=== PATIENT | female | born 1950 | race Caucasian/White ===

== ENCOUNTER 2017-05-20 06:06 | Observation (INO) ==
[2017-05-20] MEDS ORDERED: Clindamycin 900 MG/50 ML 900 MG/50 ML IV.SOLN IVPB ONE (06:51)
[2017-05-20] MEDS ORDERED: Ringers Solution, Lactated 1,000 ML IVC SCH (07:00)
[2017-05-20] MEDS ORDERED: Ondansetron 4 MG/2 ML VIAL ONE (07:14)
[2017-05-20] MEDS ORDERED: *HR* FentaNYL (PF) 100 MCG/2 ML VIAL ONE (07:14)
[2017-05-20] MEDS ORDERED: Dexamethasone 4 MG/ML VIAL ONE ×2 (07:14→08:05)
[2017-05-20] MEDS ORDERED: *HR* Propofol 200 MG/20 ML VIAL IVP ONE (07:14)
[2017-05-20] MEDS ORDERED: *HR* Succinylcholine 200 MG/10 ML VIAL IVP ONE (07:14)
[2017-05-20] MEDS ORDERED: *HR* Rocuronium Bromide 50 MG/5 ML VIAL ONE (07:14)
[2017-05-20] MEDS ORDERED: *HR* Midazolam HCl 2 MG/2 ML VIAL ONE (07:14)
[2017-05-20] MEDS ORDERED: Lidocaine -MPF 2% 2 ML VIAL ONE (07:14)
[2017-05-20] MEDS ORDERED: Acetaminophen IV 1,000 MG/100 ML INFUS..BTL IVPB ONE (07:15)
[2017-05-20] MEDS ORDERED: Famotidine 20 MG/2 ML VIAL IVP ONE (07:15)
--- NOTE | 2017-05-20 07:18 | Anesthesia Evaluation PreOp ---
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: Other (Fibromyalgia) Other Medical History: GERD, Other (Obese) Anesthesia History: No Prior Anesthetic Complications : No Alcohol Use: none Medications and Allergies 3 Allergy/AdvReac Type Severity Reaction Status Date / Time acetaminophen [From Vicodin] AdvReac Nausea Verified 05/13/17 14:56 Amoxicillin AdvReac Nausea Verified 05/13/17 14:56 codeine AdvReac Nausea Verified 05/13/17 14:56 hydrocodone [From Vicodin] AdvReac Nausea Verified 05/13/17 14:56 Oxycodone [From Percocet] AdvReac Nausea Verified 05/13/17 14:56 topiramate [From Topamax] AdvReac Nausea Verified 05/13/17 14:56 - Meds/Allergy Pre-op Review Medications Reviewed: Yes Allergies Reviewed: Yes Beta Blockers on Current Med List: No Anesthesia Results - Labs Laboratory Tests 05/13/17 05/13/17 15:12 15:12 Hgb 13.1 Hct 40.4 Plt Count 252 Sodium 139 Potassium 4.2 BUN 14 Creatinine 0.75 Anesthesia Exam O2 Sat Height 1.52 m Height 1.52 m Height 1.52 m Weight 79.379 kg Weight 79.379 kg Weight 79.379 kg O2 Sat by Pulse Oximetry 95 Vital Signs Temp Pulse Resp BP Pulse Ox 98.7 F 72 18 139/80 95 05/20/17 06:34 05/20/17 06:34 05/20/17 06:34 05/20/17 06:34 05/20/17 06:34 Height: 5'0 Weight: 175 lbs NPO (# of Hours): MN Pain Scale: 0 - HEENT Pupil (Motor): Pupils equal, EOMI Mallampati: III Teeth: Edentulous Denture Type: Upper: Complete Oral Opening: Less than or equal to 3 - 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
[2017-05-20] MEDS ORDERED: Lidocaine -MPF 1% 2 ML VIAL ONE (07:23)
--- NOTE | 2017-05-20 07:44 | History & Physical Report ---
Date of Encounter: 05/20/17 Time of Encounter: 07:42 24 Hour HP Update - Instructions Instructions: If the History and Physical is less than 30 days old and was completed prior to A.M. admission and or procedure and has NOT been updated on calendar day of procedure please complete this update prior to performing procedure. - Update Patient reports changes in Medical Condition: No Changes in examination, assessment, or condition: No Changes in Medication: No Preop tests/diagnostics Reviewed: Yes Pre-Op MRSA Screen: Negative Surgery Remains Indicated: Yes Consent for Planned Operative Procedure(s) Verified: Yes - Pre-Operative Checklist Preoperative Checklist Indicated: No Prophylactic Antibiotic Ordered: Yes Home Medications Include Beta Yamilex: No Beta Yamilex Taken Today (Day of Surgery): No Beta Yamilex Taken Yesterday (Day Prior to Surgery): No Is VTE Prophylaxis Indicated?: Yes
[2017-05-20] MEDS ORDERED: *HR* Phenylephrine 10 MG/ML VIAL ONE (09:04)
[2017-05-20] MEDS ORDERED: Albuterol 2.5 MG/3 ML NEBULIZER IH PRN (09:21)
[2017-05-20] MEDS ORDERED: *HR* Promethazine 25 MG/ML VIAL IVP PRN (09:21)
[2017-05-20] MEDS ORDERED: EPHEDrine 50 MG/ML VIAL ONE (09:38)
[2017-05-20] MEDS ORDERED: *HR* HYDROmorphone 2 MG/ML SYRINGE ONE (10:09)
[2017-05-20] MEDS ORDERED: Neostigmine Methylsulfate 3 MG/3 ML SYRINGE ONE (10:10)
--- NOTE | 2017-05-20 10:46 | Orthopedic Operative Note ---
Date of procedure: 05/20/17 Pre-op diagnosis: Spondylolisthesis, lumbar stenosis Post-op diagnosis: same Operation/Findings: Posterior lumbar interbody fusion L4-L5: The patient successfully underwent general endotracheal anesthesia. The patient was given antibiotics prior to the start of the procedure. Compression boots and stockings were used for deep vein thrombosis prophylaxis. A Spears catheter was placed. Leads for neuro monitoring were placed on the upper and lower extremities. This included the cranium. The neuro monitoring personnel confirmed there were satisfactory readings prior to the start of the procedure. The patient was turned prone on the Luis Armando table. The back was prepped and draped in the usual sterile fashion. An incision was was marked and centered over the involved L4-L5 levels in the mid line. The incision was deepened through the lumbar fascia. Bovie cautery and Zapata elevators were used to reflect the paraspinal musculature at the lateral extent of the transverse processes of the involved L4 and L5 levels. Renee clamps were placed over the spinous L4 and L5 processes. An intraoperative lateral fluorograft was obtained. A conversation was held between the surgeon and radiologist and both confirmed we had the correct operative levels. We then placed pedicle screws in standard fashion with the aid of fluoroscopy and anatomic landmarks. Briefly a starter awl was used. A gearshift was subsequently used to enter the army helicopter pilot hole via a transpedicular route into the vertebral body. The army helicopter pilot hole was tapped with an undersized instrument, and subsequently four 6.5 x 40 mm pedicle screws were placed bilaterally at the indicated L4 and L5 levels. The screws were tested with the aid of the neurologic monitoring staff via pedicle screw stimulation. All reading suggested there was no significant cortical wall breech. The screws were also evaluated fluoro- graphically and appeared to be in satisfactory position. We then turned our attention to the decompression portion of the procedure. We removed the supraspinous and interspinous ligaments and subsequently the insertion of the ligamentum flavum on the undersurface of the proximal L4 lamina was dislodged with a curette. We then removed the ligamentum flavum as well as undercut the L4-L5 facets at this level to decompress the lateral recesses. We also performed a L4 laminectomy. After the decompression, which was over and above that which was required to place the interbody graft, the foramen and traversing roots at this L4-L5 level were found to be free and patent. We also took part of the medial facets in order to aid in the decompression. We then protected the neural elements including the thecal sac and traversing nerve root on the right with a dural retractor. We made an annulotomy into the L4-L5 disc space and then removed entire disc material using Pituitary instruments. We trialed various size grafts after the endplates were prepared for graft insertion. A 10 x 26 enter body graft fit well within the L4-L5 disc space. We obtained some bone from the right posterior superior iliac spine through us a separate incision and combined with this with the bone which we had saved from the laminectomy portion of the procedure. This autograft bone was first placed in the anterior portion of the L4-L5 disc space and additional bone was placed within the interbody graft spacer. We then placed the interbody graft spacer obliquely across the disc space towards the midline while protecting the neural elements with a root retractor. When the graft was found to be in satisfactory position the admissions specialist was removed. We then copiously irrigated the wound. We then decorticated the transverse processes of L4 and L5 as well as theL4-5 facet joints of the involved levels to aid in the posterolateral fusion. We placed autograft bone in the lateral gutters over these regions. We then placed rods within the screw heads of the involved levels and first locked the distal screws and then subsequently locked the proximal screws so as to improve and reduce the spondylolisthesis previously seen. We then closed the wound in layers with 1 Vicryl for the fascia, 2-0 Vicryl. Subcutaneous tissue, and Dermabond was used for skin closure. Sterile dressings were placed over the wound. The patient was turned supine on a hospital bed and extubated. All sponge instruments and needle counts were correct at the end of the procedure. The patient tolerated the procedure well without complications. Anesthesia: GETA Surgeon: Jay Acosta Jr Estimated blood loss (cc): 150 Condition: stable Disposition: PACU
[2017-05-20] MEDS: *HR* HYDROmorphone (PF) 1 MG/ML SYRINGE IVP PRN ×3 (11:00→11:20)
--- NOTE | 2017-05-20 12:02 | Anesthesia Evaluation Post Op ---
Date of Encounter: 05/20/17 Time of Encounter: 11:45 - Vital Signs Vital Signs: Vital Signs/O2 Sat/Glucose, Most Current Temp Pulse Resp BP Pulse Ox 05/20/17 11:39 97.4 F L 05/20/17 11:30 62 10 126/64 100 05/20/17 11:20 97.6 F 64 12 110/66 96 05/20/17 11:10 51 12 107/60 98 05/20/17 11:00 63 12 116/70 100 05/20/17 10:50 97.1 F L 71 12 106/58 97 05/20/17 08:20 98.7 F 72 18 139/80 95 - Lungs Lungs: Clear Ascult./Percussion - Airway Airway: Non-obstructed - Cardiovascular Regular Rate - Mental Status Mental Status: Alert & Oriented, Answers Appropriately - Pain Pain Scale: 1 - Nausea Vomiting Nausea Vomiting: Not Present - Hydration Hydration: Ice chips - Discharge PostOp Status: Transfer Patient to floor
[2017-05-20] MEDS ORDERED: Naloxone 0.4 MG/ML INJ IVP PRN (12:26)
[2017-05-20] MEDS ORDERED: traMADol 50 MG TABLET PO PRN (12:26)
[2017-05-20] MEDS ORDERED: Famotidine 20 MG TABLET PO PRN (12:26)
[2017-05-20] MEDS: Ondansetron 4 MG/2 ML VIAL IVP PRN ×2 (14:42→21:13)
[2017-05-20] MEDS: Clindamycin 600 MG/50 ML 600 MG/50 ML IV.SOLN IVPB SCH ×2 (14:42→23:03)
[2017-05-20] MEDS: *HR* OxyCODONE Immed Rel 5 MG TABLET PO PRN (14:42)
[2017-05-20] MEDS ORDERED: Scopolamine Patch 1.5 MG PATCH.TD72 TD ONE (15:50)
[2017-05-20] MEDS: *HR* Morphine 2 MG/ML SYRINGE IVP PRN (20:01)
[2017-05-20] MEDS: Ringers Solution, Lactated 1,000 ML IVC SCH (21:12)
[2017-05-21] MEDS: *HR* Morphine 2 MG/ML SYRINGE IVP PRN ×2 (00:13→04:07)
[2017-05-21 08:02] LABS: BUN/Creatinine Ratio 15 (6-26); Blood Urea Nitrogen 10 mg/dL (7-20); Calcium 9.1 mg/dL (8.6-10.8); Carbon Dioxide 23 mEq/L (19-29); Chloride 106 mEq/L (98-109); Glucose 106 mg/dL (70-99); Osmolality,Calculated 287 (280-300); Potassium 4.9 mEq/L (3.5-4.5); Sodium 139 mEq/L (136-145); eGFR For African Americans > 60 (> 60); eGFR For Non-African Americans > 60 (> 60)
[2017-05-21] MEDS: Cholecalciferol (D-3) 1,000 UNIT TABLET PO SCH (09:08)
[2017-05-21] MEDS: Magnesium Oxide 400 MG TABLET PO SCH (09:08)
[2017-05-21] MEDS: *HR* OxyCODONE Immed Rel 5 MG TABLET PO PRN ×4 (09:09→23:35)
--- NOTE | 2017-05-21 11:50 | Spine Progress Note ---
Date of Encounter: 05/21/17 Time of Encounter: 11:49 Subjective Principal diagnosis: Spondylolisthesis, lumbar stenosis, lumbar radiculopathy Interval history: The patient of back pain reasonably controlled on IV narcotics.. Afebrile vital signs are stable. Dressing is clean dry and intact. Neurovascularly intact with regard to bilateral lower extremities. . Assessment :stable. Plan mobilize ,continue analgesics, discharge planning. Objective Vital signs: Vital Signs Temp Pulse Resp BP Pulse Ox 05/21/17 07:35 99.0 F 66 16 111/68 100 05/21/17 04:03 98.8 F 72 17 105/66 98 05/20/17 23:40 98.1 F 81 19 103/63 99 05/20/17 21:21 98.0 F 80 16 117/72 100 05/20/17 15:25 97.4 F L 65 16 109/70 99 05/20/17 14:09 97.2 F L 60 18 113/69 98 05/20/17 13:55 97.2 F L 60 18 113/69 98 05/20/17 13:03 70 12 116/60 100 05/20/17 12:30 97.5 F L 65 16 131/76 99 05/20/17 12:01 96.4 F L 54 12 109/70 99 Intake and Output 05/20/17 05/21/17 05/21/17 23:59 07:59 15:59 Intake Total 25 / 25 100 / 100 480 / 480 Output Total 900 / 900 1500 / 1500 Balance -875 / -875 -1400 / -1400 480 / 480 Intake: IV Fluids 50 / 50 Cleocin Premix 600 MG/50 50 / 50 ML 600 mg In 50 ml @ 50 mls/hr IVPB Q8HR [facility] Rx#: [id number] Oral 25 / 25 50 / 50 480 / 480 Output: Catheter 900 / 900 1500 / 1500 Other: Meal Breakfast Percent of Meal Consumed 20% - Labs CBC & BMP: 05/21/17 07:10 Labs: Abnormal lab results Potassium 4.9 mEq/L (3.5-4.5) H 05/21/17 07:10 Glucose 106 mg/dL (70-99) H 05/21/17 07:10 Consult Discharge Plan - Plan Referrals: Gregor España MD [Primary Care Provider] -
[2017-05-21] MEDS: Ondansetron ODT 4 MG TAB.RAPDIS SL PRN (14:21)
[2017-05-21] MEDS: Ringers Solution, Lactated 1,000 ML IVC SCH ×2 (18:45)
[2017-05-22] MEDS: Ondansetron ODT 4 MG TAB.RAPDIS SL PRN ×2 (03:09→09:38)
[2017-05-22] MEDS: Ringers Solution, Lactated 1,000 ML IVC SCH ×2 (03:11→21:00)
[2017-05-22] MEDS: *HR* OxyCODONE Immed Rel 5 MG TABLET PO PRN ×3 (09:37→20:59)
[2017-05-22] MEDS: Magnesium Oxide 400 MG TABLET PO SCH (09:38)
[2017-05-22] MEDS: Cholecalciferol (D-3) 1,000 UNIT TABLET PO SCH (09:38)
[2017-05-22] MEDS: *HR* Morphine 2 MG/ML SYRINGE IVP PRN (11:59)
[2017-05-22] MEDS ORDERED: Bisacodyl 10 MG RECTAL SUPPOSITORY RC PRN (22:39)
[2017-05-23] MEDS ORDERED: Acetaminophen 325 MG TABLET PO PRN (02:26)
[2017-05-23 02:42] LABS: Alanine Aminotransferase 21 Units/L (0-55); Albumin 2.7 g/dL (3.5-5.0); Albumin/Globulin Ratio 0.8 (1.1-2.2); Alkaline Phosphatase 75 Units/L (38-126); Aspartate Amino Transferase 30 Units/L (5-34); BUN/Creatinine Ratio 14 (6-26); Bilirubin,Total 1.1 mg/dL (0.2-1.2); Blood Urea Nitrogen 9 mg/dL (7-20); Calcium 8.5 mg/dL (8.6-10.8); Carbon Dioxide 25 mEq/L (19-29); Chloride 100 mEq/L (98-109); Globulin 3.3 g/dL (2.4-3.5); Glucose 120 mg/dL (70-99); Osmolality,Calculated 278 (280-300); Potassium 4.2 mEq/L (3.5-4.5); Sodium 134 mEq/L (136-145); eGFR For African Americans > 60 (> 60); eGFR For Non-African Americans > 60 (> 60)
[2017-05-23 06:02] LABS: Basophils # 0.1 K/mcL (0.0-0.2); Basophils % 0.6 %; Eosinophils # 0.4 K/mcL (0.0-0.6); Eosinophils % 2.5 %; Hemoglobin 10.2 g/dL (11.5-15.4); Immature Granulocytes % 0.5 % (0-4); Immature Platelets 4.1 % (1.1-6.1); Lymphocytes # 2.1 K/mcL (0.6-4.6); Lymphocytes % 14.9 %; Mean Corpuscular HGB Conc 32.9 g/dL (31.6-35.5); Mean Corpuscular Hemoglobin 31.8 pg (28.0-33.3); Mean Corpuscular Volume 96.6 fL (83.0-100.0); Mean Platelet Volume 10.4 fL (9.4-12.4); Monocytes # 1.9 K/mcL (0.0-1.3); Monocytes % 13.7 %; Neutrophils # 9.3 K/mcL (1.6-8.9); Platelet Count 213 K/mcL (140-400); Red Blood Count 3.21 M/mcL (3.82-4.97); Red Cell Distribution Width 12.5 % (11.5-14.5); Segmented Neutrophils % 67.8 %
[2017-05-23] MEDS: Ondansetron 4 MG/2 ML VIAL IVP PRN (06:03)
[2017-05-23] MEDS: *HR* OxyCODONE Immed Rel 5 MG TABLET PO PRN ×2 (06:08→14:52)
--- NOTE | 2017-05-23 06:51 | Event Note ---
Date of Encounter: 05/23/17 Time of Encounter: 02:15 Assessed at bedside due to fever. No new pain. Minimal cough, no sputum. No abdominal pain. No new rash. No dysuria. Appears acutely ill but non-toxic. Low normal blood pressure. Lower back wound with minimal srosanguinous dried discharge on bandage, no erythema or warmth. Decreased breath sounds at bases. Soft, NT, ND, no guarding or rebound. Trace LE swelling, no erythema. - Post-op fever, no clear focal source - blood cultures - urine cultures - CXR - CBC, CMP - Doppler, r/o DVT - Hold antibiotics for now, try to find source - If persistent fever, worsens clinically and no source found, consider broad spectrum antibiotics
[2017-05-23] MEDS: Cholecalciferol (D-3) 1,000 UNIT TABLET PO SCH (09:47)
[2017-05-23] MEDS: Magnesium Oxide 400 MG TABLET PO SCH (09:47)
--- NOTE | 2017-05-23 14:13 | Spine Progress Note ---
Date of Encounter: 05/22/17 Time of Encounter: 14:00 Subjective Principal diagnosis: Spondylolisthesis, lumbar stenosis, lumbar radiculopathy Interval history: The patient of back pain reasonably controlled on IV narcotics.. Afebrile vital signs are stable. Incision is clean dry and intact. Neurovascularly intact with regard to bilateral lower extremities. . Assessment :stable. Plan mobilize ,continue analgesics, discharge planning. Objective Vital signs: Vital Signs Temp Pulse Resp BP Pulse Ox 05/23/17 11:50 99.2 F 79 15 112/73 92 05/23/17 08:23 99.4 F 83 16 106/70 93 05/23/17 04:30 100.5 F H 92 18 94/57 94 05/23/17 01:04 101.8 F H 86 18 102/67 95 05/22/17 20:37 100.2 F H 94 17 105/64 95 05/22/17 15:52 100.9 F H 91 14 116/71 97 Intake and Output 05/22/17 05/23/17 05/23/17 23:59 07:59 15:59 Intake Total 120 / 120 Output Total 0 / 0 Balance 0 / 0 120 / 120 Intake: Oral 120 / 120 Output: Urine 0 / 0 Other: Meal Clear Liquid Diet Breakfast Percent of Meal Consumed 5% 10% # Voids 1 1 Weight 80.63 kg Patient Weight 05/23/17 23:59 Weight 80.63 kg - Labs CBC & BMP: 05/23/17 05:54 05/23/17 02:15 Labs: Abnormal lab results WBC 13.8 K/mcL (4.3-11.1) H 05/23/17 05:54 RBC 3.21 M/mcL (3.82-4.97) L 05/23/17 05:54 Hgb 10.2 g/dL (11.5-15.4) L 05/23/17 05:54 Hct 31.0 % (35.3-44.9) L 05/23/17 05:54 Neutrophils # 9.3 K/mcL (1.6-8.9) H 05/23/17 05:54 Monocytes # 1.9 K/mcL (0.0-1.3) H 05/23/17 05:54 Sodium 134 mEq/L (136-145) L 05/23/17 02:15 Glucose 120 mg/dL (70-99) H 05/23/17 02:15 Calculated Osmolality 278 (280-300) L 05/23/17 02:15 Calcium 8.5 mg/dL (8.6-10.8) L 05/23/17 02:15 Albumin 2.7 g/dL (3.5-5.0) L 05/23/17 02:15 Albumin/Globulin Ratio 0.8 (1.1-2.2) L 05/23/17 02:15 Consult Discharge Plan - Plan Referrals: Gregor España MD [Primary Care Provider] -
[2017-05-23 15:37] VITALS: BP 123/74
--- NOTE | 2017-05-23 17:51 | Discharge Summary ---
Date of Encounter: 05/23/17 Time of Encounter: 17:49 - Discharge Diagnosis (1) Spondylolisthesis Priority: Primary Status: Chronic Qualifiers: Spinal region: lumbar Qualified Code(s): M43.16 - Spondylolisthesis, lumbar region (2) Lumbar stenosis Priority: Secondary Status: Chronic - Discharge Medications Prescriptions: Oxycodone HCl 5 mg PO BID PRN #30 PRN Reason: Moderate Pain Home Medications: Calcium Carbonate/Vitamin D3 [Calcium 500 + Vit D Caplet] 1 tab PO BID 05/20/17 [History] Famotidine [Pepcid] 40 mg PO DAILY PRN 05/20/17 [History] Gabapentin [Neurontin] 300 mg PO TID 05/20/17 [History] Magnesium Oxide [Magnesium] 500 mg PO DAILY 05/20/17 [History] Meloxicam 15 mg PO DAILY 05/20/17 [History] Prochlorperazine Maleate [Compazine] 10 mg PO Q8HR PRN 05/20/17 [History] Oxycodone HCl 5 mg PO BID PRN #30 05/23/17 [Rx] Allergies/Adverse Reactions: 3 Allergy/AdvReac Type Severity Reaction Status Date / Time Amoxicillin AdvReac Nausea Verified 05/20/17 07:58 codeine AdvReac Nausea Verified 05/20/17 07:58 hydrocodone AdvReac Nausea Verified 05/20/17 07:58 topiramate [From Topamax] AdvReac Nausea Verified 05/20/17 07:58 Labs on day of discharge: Labs from last 24 hours 05/23/17 05/23/17 05/23/17 05:54 02:15 02:15 WBC 13.8 H RBC 3.21 L Hgb 10.2 L Hct 31.0 L MCV 96.6 MCH 31.8 MCHC 32.9 RDW 12.5 Plt Count 213 MPV 10.4 Immature Gran % 0.5 Seg Neutrophils % 67.8 Lymphocytes % 14.9 Monocytes % 13.7 Eosinophils % 2.5 Basophils % 0.6 Neutrophils # 9.3 H Lymphocytes # 2.1 Monocytes # 1.9 H Eosinophils # 0.4 Basophils # 0.1 Immature Plt Fraction 4.1 Sodium 134 L Potassium 4.2 Chloride 100 Carbon Dioxide 25 BUN 9 Creatinine 0.64 Est GFR ( Amer) > 60 Est GFR (Non-Af Amer) > 60 BUN/Creatinine Ratio 14 Glucose 120 H Calculated Osmolality 278 L Calcium 8.5 L Total Bilirubin 1.1 AST 30 ALT 21 Alkaline Phosphatase 75 Serum Total Protein 6.0 Albumin 2.7 L Globulin 3.3 Albumin/Globulin Ratio 0.8 L Specimen Rejected Clotted - Impressions ITS Impressions Lumbar Spine X-Ray 05/20/17 00:00 IMPRESSION: Status post L4-5 fusion with improved alignment of the lumbar spine D/ / Germain Herrera MD / Germain Herrera MD Interpreting Provider: Germain Herrera MD Chest X-Ray 05/23/17 02:27 IMPRESSION: No evidence of acute cardiopulmonary disease. D/ / Dashawn Dowell MD / Dashawn Dowell MD Interpreting Provider: Dashawn Dowell MD Lumbar Spine X-Ray 05/23/17 08:15 IMPRESSION: 1. Stable alignment status post L4/L5 posterior fusion. No evidence of hardware complication. 2. Severe L5/S1 degenerative disc disease. D/ / Shakeel Sandhu MD / Shakeel Sandhu MD Interpreting Provider: Shakeel Sandhu MD Date of admission: 05/20/17 11:46 Primary care physician: Gregor España MD Consults: 05/20/17 12:26 Consult to Occupational Therapy [CONS] Routine Comment: Evaluate, develop and implement POC Reason for Consult: Postoperative Consult to Physical Therapy [CONS] Routine Comment: Evaluate, develop and implement POC Reason for Consult: Postoperative Consult to Spine Navigator [CONS] [CONS] Routine 05/20/17 12:55 Consult to Firing Pin Gauger [CONS] Routine Reason for SW Consult: [facility] - Patient Status Disposition: Transfer SNF Condition: Good Functional capacity at discharge: uses cane/walker Overall status at discharge: patient is progressing back to baseline - Discharge Instructions Follow Up With: Gregor España MD [Primary Care Provider] - - Diet and Activity Activity: as per physical therapy Diet: advance to your usual diet - Hospital Course Hospital course: Ms. Clemons is a 66 year old female The patient had an uneventful postoperative course. Progressed from intravenous analgesic needs to oral analgesic needs only. Remained neurovascularly intact and mobilized only fairly. All intraoperative and/or postoperative radiographic studies were satisfactory. Patient is discharged with plan for rehabilitation and follow-up in 2 weeks post discharge on analgesic medication and patient's home medications. - Time Spent with Patient Total time spent providing and/or coordinating discharge services: - VTE Documentation of Mechanical Device: Venous foot pump, device
== END 2017-05-23 19:30 | DRG 460 ==
LOC: SAMDAY 06:06 → 3NENU 11:46 → INTOOBSV 11:46
PROVIDERS: ADMIT Orthopaedic Surgery Orthopaedic Surgery of the Spine; ATTEND Orthopaedic Surgery Orthopaedic Surgery of the Spine

== ENCOUNTER 2017-09-06 06:49 | Observation (INO) ==
[2017-09-06] MEDS ORDERED: 0.9 % Sodium Chloride 1,000 ML ONE (07:06)
[2017-09-06 07:13] LABS: Basophils # 0.1 K/mcL (0.0-0.2); Basophils % 0.6 %; Eosinophils # 0.5 K/mcL (0.0-0.6); Eosinophils % 3.1 %; Hematocrit 45.4 % (35.3-44.9); Hemoglobin 15.2 g/dL (11.5-15.4); Immature Granulocytes % 0.4 % (0-4); Lymphocytes # 0.9 K/mcL (0.6-4.6); Lymphocytes % 6.1 %; Mean Corpuscular HGB Conc 33.5 g/dL (31.6-35.5); Mean Corpuscular Hemoglobin 30.2 pg (28.0-33.3); Mean Corpuscular Volume 90.3 fL (83.0-100.0); Mean Platelet Volume 9.9 fL (9.4-12.4); Monocytes # 1.2 K/mcL (0.0-1.3); Neutrophils # 11.8 K/mcL (1.6-8.9); Platelet Count 355 K/mcL (140-400); Red Blood Count 5.03 M/mcL (3.82-4.97); Red Cell Distribution Width 13.2 % (11.5-14.5); Segmented Neutrophils % 81.8 %
[2017-09-06 07:27] LABS: Alanine Aminotransferase 21 Units/L (0-55); Albumin 3.5 g/dL (3.5-5.0); Albumin/Globulin Ratio 0.9 (1.1-2.2); Alkaline Phosphatase 140 Units/L (38-126); Amylase 42 Units/L (25-125); Aspartate Amino Transferase 22 Units/L (5-34); BUN/Creatinine Ratio 19 (6-26); Bilirubin,Direct 0.3 mg/dL (0.0-0.5); Bilirubin,Indirect 0.3 mg/dL (0.0-1.2); Bilirubin,Total 0.6 mg/dL (0.2-1.2); Blood Urea Nitrogen 14 mg/dL (7-20); Calcium 9.2 mg/dL (8.6-10.8); Carbon Dioxide 25 mEq/L (19-29); Chloride 102 mEq/L (98-109); Glucose 142 mg/dL (70-99); Osmolality,Calculated 287 (280-300); Potassium 3.9 mEq/L (3.5-4.5); Sodium 137 mEq/L (136-145); Total Protein 7.5 g/dL (6.0-8.3); eGFR For African Americans > 60 (> 60); eGFR For Non-African Americans > 60 (> 60)
[2017-09-06 07:30] LABS: Lipase < 10 Units/L (8-78)
[2017-09-06] MEDS ORDERED: Ondansetron 4 MG/2 ML VIAL IVP ONE (07:33)
[2017-09-06] MEDS ORDERED: Famotidine 20 MG/2 ML VIAL IVP ONE (07:43)
[2017-09-06 08:01] LABS: Bilirubin,Urine Negative (Negative); Blood,Urine Negative (Negative); Clarity,Urine Clear (Clear); Color,Urine Yellow (Yellow); Glucose,Urine (UA) Normal (Normal); Ketones,Urine Negative (Negative); Leukocyte Esterase,Urine Small (Negative); Nitrite,Urine Negative (Negative); PH,Urine 7.5 pH Units (5.0-8.0); Protein,Urine 30 mg/dL (Neg-Trace); Specific Gravity,Urine 1.022 (1.010-1.025); Urobilinogen,Urine Normal (Normal)
[2017-09-06 08:04] LABS: Bacteria,Urine None Seen per hpf (None-Few); Hyaline Casts,Urine None Seen per lpf (None-Few); RBC,Urine 0-3 per hpf (0-3); Squamous Epithelial Cell,Urine Many per lpf (None-Few)
--- NOTE | 2017-09-06 08:11 | Emergency Department Note ---
Disposition Clinical Impression: Generalized weakness Pneumonia Qualifiers: Pneumonia type: due to unspecified organism Laterality: left Lung location: unspecified part of lung Qualified Code(s): J18.9 - Pneumonia, unspecified organism Nausea & vomiting Qualifiers: Vomiting type: bilious vomiting Qualified Code(s): R11.14 - Bilious vomiting Disposition: Admitted As Inpatient Condition: Undetermined Time of Disposition: 09:27 Abdominal Pain HPI - General Chief Complaint: ED Abdominal Pain Stated Complaint: n/v/d Time Seen by Provider: 09/06/17 07:12 Source: patient Mode of arrival: ambulatory Limitations: no limitations Nursing Notes Reviewed: Yes Vital Signs Reviewed: Yes - History of Present Illness HPI Narrative: 67-year-old female arrives [facility] emergency department complaining of multiple complaints but states that brought her into the emergency department is over the past 3 days she has been experiencing a large amount of diarrhea, vomiting, nausea. The patient also is of some left-sided abdominal pain. The patient states this is an ongoing course the past 3 days it is new. The patient does state that over the past month she has felt ill and had numerous visits with different physicians including urgent care as well as PCP. The patient was noted to have been recently treated with azithromycin for concern for upper respiratory infection. The patient recently had PFTs for concern for COPD which were negative. Patient denies any other complaints at this time. Upon arrival to the emergency department she was noted to be tachycardic. An IV was placed and fluids were banister. The patient states that she has been vomiting bilious type vomit as well as copious amounts of diarrhea. Pt Subjective Complaint: abdominal pain Onset (ago): day(s) (3) Consistency: intermittent Pain Severity: mild Pain Scale: 1 Quality: cramping Radiation: none Migration to: no migration Improves with: nothing Worsens with: nothing Associated symptoms: Reports: nausea, vomiting, diarrhea. Denies: fever, chills , constipation, dysuria, hematemesis, hematochezia, melena, hematuria, anorexia , syncope Treatments prior to arrival: none - Related Data Home Medications Medication Instructions Recorded Confirmed Calcium Carbonate/Vitamin D3 1 tab PO BID 05/20/17 09/06/17 [Calcium 500 + Vit D Caplet] Famotidine [Pepcid] 40 mg PO DAILY PRN 05/20/17 09/06/17 Gabapentin [Neurontin] 300 mg PO TID 05/20/17 09/06/17 Magnesium Oxide [Magnesium] 500 mg PO DAILY 05/20/17 09/06/17 Meloxicam 15 mg PO DAILY 05/20/17 09/06/17 Oxycodone HCl 10 mg PO BID PRN 09/06/17 09/06/17 Previous Rx's Medication Instructions Recorded Albuterol Sulfate [Albuterol 2 puff IH QID #1 inhaler 08/30/17 Inhaler] Allergies Allergy/AdvReac Type Severity Reaction Status Date / Time Amoxicillin AdvReac Nausea Verified 09/06/17 06:51 codeine AdvReac Nausea Verified 09/06/17 06:51 hydrocodone AdvReac Nausea Verified 09/06/17 06:51 topiramate [From Topamax] AdvReac Nausea Verified 09/06/17 06:51 All systems ED: reviewed and negative except as stated. Constitutional: Reports: chills, weakness. Denies: fever ENT ED: Denies: congestion Cardiovascular: Denies: chest pain Respiratory: Reports: cough, wheezes. Denies: dyspnea, hemoptysis, sputum production Gastrointestinal: Reports: abdominal pain, nausea, vomiting, diarrhea. Denies: constipation, hematemesis, melena, hematochezia Genitourinary: Denies: urgency, dysuria Musculoskeletal: Reports: myalgia. Denies: back pain, neck pain, arthralgia Integumentary: Denies: rash Neurological: Reports: weakness. 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 Psychiatric history: Reports: no psych history - Social History Smoking status: Never smoker Alcohol use: Reports: none Drug use: Reports: none Physical Exam - General Limitations: no limitations General appearance: alert, in no apparent distress - Head Head exam: atraumatic, normocephalic, normal inspection - Eye Eye exam: Present: normal appearance, PERRL, EOMI - ENT ENT exam: normal exam, normal oropharynx, mucous membranes moist - Neck Neck exam: Present: normal inspection, full ROM, trachea midline - Chest Chest inspection: Present: normal inspection, symmetric chest wall rise - Respiratory Respiratory exam: Present: other (Coarse breath sounds. ) - Cardiovascular Cardiovascular exam: Present: normal rhythm, tachycardia, normal heart sounds - Abdominal Exam Abdominal exam: Present: soft, tenderness (LEFT abdomen). Absent: distention, guarding, rebound, rigidity, heel tap sign, Medley's sign, Rovsing's sign, tenderness at McBurney's Point - Extremities Exam Extremities exam: Present: normal inspection, full ROM. Absent: tenderness, pedal edema - Neurological Exam Neurological exam: Present: alert, oriented X3 - Skin Skin exam: Present: warm, dry, intact, normal color Course Vital Signs Temperature 98.1 F 09/06/17 06:52 Pulse Rate 119 09/06/17 06:52 Respiratory Rate 18 09/06/17 06:52 Blood Pressure 116/81 09/06/17 06:52 O2 Sat by Pulse Oximetry 93 09/06/17 06:52 Temperature 98.1 F 09/06/17 11:08 Pulse Rate 83 09/06/17 11:08 Respiratory Rate 16 09/06/17 11:08 Blood Pressure 143/87 09/06/17 11:08 O2 Sat by Pulse Oximetry 97 09/06/17 11:08 Oxygen Delivery Oxygen Delivery Room Air Abdominal Pain - MDM Narrative Medical decision making narrative: Patient's chest x-ray demonstrates a left lingular pneumonia. We will obtain a lactate and blood culture. The patient was tachycardic upon arrival to the emergency department. This has subsequently resolved. The patient states that this has continued and she is concerned about going home. We administered 1 g of Rocephin for community-acquired pneumonia. We will admit the patient to the hospitalist at this time. Accepted by Dr. Walton. - Lab Data Lab results reviewed: Yes I reviewed the patient's lab results. Result diagrams: 09/06/17 07:06 09/06/17 07:06 Lab Results 09/06/17 09/06/17 09/06/17 Range/Units 07:06 07:06 07:06 WBC 14.4 H (4.3-11.1) K/mcL RBC 5.03 H (3.82-4.97) M/mcL Hgb 15.2 (11.5-15.4) g/dL Hct 45.4 H (35.3-44.9) % MCV 90.3 (83.0-100.0) fL MCH 30.2 (28.0-33.3) pg MCHC 33.5 (31.6-35.5) g/dL RDW 13.2 (11.5-14.5) % Plt Count 355 (140-400) K/mcL MPV 9.9 (9.4-12.4) fL Immature Gran % 0.4 (0-4) % Seg Neutrophils % 81.8 % Lymphocytes % 6.1 % Monocytes % 8.0 % Eosinophils % 3.1 % Basophils % 0.6 % Neutrophils # 11.8 H (1.6-8.9) K/mcL Lymphocytes # 0.9 (0.6-4.6) K/mcL Monocytes # 1.2 (0.0-1.3) K/mcL Eosinophils # 0.5 (0.0-0.6) K/mcL Basophils # 0.1 (0.0-0.2) K/mcL Sodium 137 (136-145) mEq/L Potassium 3.9 (3.5-4.5) mEq/L Chloride 102 (98-109) mEq/L Carbon Dioxide 25 (19-29) mEq/L BUN 14 (7-20) mg/dL Creatinine 0.72 (0.57-1.11) mg/dL Est GFR ( Amer) > 60 (> 60) Est GFR (Non-Af Amer) > 60 (> 60) BUN/Creatinine Ratio 19 (6-26) Glucose 142 H (70-99) mg/dL Calculated Osmolality 287 (280-300) Lactic Acid (0.5-2.2) mmol/L Calcium 9.2 (8.6-10.8) mg/dL Magnesium 1.9 (1.6-2.6) mg/dL Total Bilirubin 0.6 (0.2-1.2) mg/dL Direct Bilirubin 0.3 (0.0-0.5) mg/dL Indirect Bilirubin 0.3 (0.0-1.2) mg/dL AST 22 (5-34) Units/L ALT 21 (0-55) Units/L Alkaline Phosphatase 140 H (38-126) Units/L Troponin I 0.02 (0-0.03) ng/mL Serum Total Protein 7.5 (6.0-8.3) g/dL Albumin 3.5 (3.5-5.0) g/dL Globulin 4.0 H (2.4-3.5) g/dL Albumin/Globulin Ratio 0.9 L (1.1-2.2) Amylase 42 (25-125) Units/L Lipase < 10 (8-78) Units/L Urine Color (Yellow) Urine Clarity (Clear) Urine pH (5.0-8.0) pH Units Ur Specific [place] (1.010-1.025) Urine Protein (Neg-Trace) mg/dL Urine Glucose (UA) (Normal) mg/dL Urine Ketones (Negative) mg/dL Urine Blood (Negative) Urine Nitrite (Negative) Urine Bilirubin (Negative) Urine Urobilinogen (Normal) mg/dL Ur Leukocyte Esterase (Negative) Urine Microscopic RBC (0-3) per hpf Urine Microscopic WBC (0-3) per hpf Ur Squamous Epith Cells (None-Few) per lpf Urine Bacteria (None-Few) per hpf Hyaline Casts (None-Few) per lpf Ur Culture Indicated? (NO) 09/06/17 09/06/17 Range/Units 07:33 09:49 WBC (4.3-11.1) K/mcL RBC (3.82-4.97) M/mcL Hgb (11.5-15.4) g/dL Hct (35.3-44.9) % MCV (83.0-100.0) fL MCH (28.0-33.3) pg MCHC (31.6-35.5) g/dL RDW (11.5-14.5) % Plt Count (140-400) K/mcL MPV (9.4-12.4) fL Immature Gran % (0-4) % Seg Neutrophils % % Lymphocytes % % Monocytes % % Eosinophils % % Basophils % % Neutrophils # (1.6-8.9) K/mcL Lymphocytes # (0.6-4.6) K/mcL Monocytes # (0.0-1.3) K/mcL Eosinophils # (0.0-0.6) K/mcL Basophils # (0.0-0.2) K/mcL Sodium (136-145) mEq/L Potassium (3.5-4.5) mEq/L Chloride (98-109) mEq/L Carbon Dioxide (19-29) mEq/L BUN (7-20) mg/dL Creatinine (0.57-1.11) mg/dL Est GFR ( Amer) (> 60) Est GFR (Non-Af Amer) (> 60) BUN/Creatinine Ratio (6-26) Glucose (70-99) mg/dL Calculated Osmolality (280-300) Lactic Acid 2.1 (0.5-2.2) mmol/L Calcium (8.6-10.8) mg/dL Magnesium (1.6-2.6) mg/dL Total Bilirubin (0.2-1.2) mg/dL Direct Bilirubin (0.0-0.5) mg/dL Indirect Bilirubin (0.0-1.2) mg/dL AST (5-34) Units/L ALT (0-55) Units/L Alkaline Phosphatase (38-126) Units/L Troponin I (0-0.03) ng/mL Serum Total Protein (6.0-8.3) g/dL Albumin (3.5-5.0) g/dL Globulin (2.4-3.5) g/dL Albumin/Globulin Ratio (1.1-2.2) Amylase (25-125) Units/L Lipase (8-78) Units/L Urine Color Yellow (Yellow) Urine Clarity Clear (Clear) Urine pH 7.5 (5.0-8.0) pH Units Ur Specific [place] 1.022 (1.010-1.025) Urine Protein 30 H (Neg-Trace) mg/dL Urine Glucose (UA) Normal (Normal) mg/dL Urine Ketones Negative (Negative) mg/dL Urine Blood Negative (Negative) Urine Nitrite Negative (Negative) Urine Bilirubin Negative (Negative) Urine Urobilinogen Normal (Normal) mg/dL Ur Leukocyte Esterase Small H (Negative) Urine Microscopic RBC 0-3 (0-3) per hpf Urine Microscopic WBC 3-5 H (0-3) per hpf Ur Squamous Epith Cells Many H (None-Few) per lpf Urine Bacteria None Seen (None-Few) per hpf Hyaline Casts None Seen (None-Few) per lpf Ur Culture Indicated? NO (NO) - Radiology Data Radiology results reviewed: Yes I reviewed the patient's radiology results. - EKG Data EKG attestation: Yes I reviewed and interpreted this EKG. EKG results narrative: Heart rate 90 bpm. GA interval 138 ms. QTC 400 ms. Normal sinus rhythm. No ST elevation or ST depression noted. No EKG changes noted from EKG from 2013. Attestation Statement - Attestation Attestation: I examined this patient and my medical decision-making was reviewed with the Resident Physician, Dr. Contreras. I agree with the documented findings, disposition and treatment plan as described except to the extent set forth below. Patient is a 67-year-old white female who presents to the emergency department stating that she has "not felt well since ". Patient states she was seen by her family doctor at that time for upper respiratory symptoms nasal congestion, nonproductive cough, treated with antibiotics and had some ongoing wheezing since that time. Patient states at the end of April she had lumbosacral surgery and she states that she has been having issues with bronchospasm and wheezing since her intubation for that procedure. These upper respiratory symptoms over the past month of exacerbated this and patient states she has had ongoing shortness of breath with wheezing as well as just feeling nauseated and not well. Over the last 3 days she developed some nausea vomiting and diarrheal symptoms, reporting frequent large amounts of watery diarrhea, nonbloody, and intermittent episodes of nonbilious nonbloody vomitus. Patient appears clinically dry and fatigued but in no acute distress. Patient denies any distinct abdominal pain states that she just has generalized aching of her belly. Patient denies any fevers or chills, no shortness of breath, no chest pain pressure or heaviness, no abdominal pain or flank pain and no urinary symptoms. Patient states she recently finished a Z-Markell approximately 72 hours ago. I agree patient's physical exam assessment as documented. Patient was tachycardic on arrival. IV fluids were instituted on arrival due to reported fluid losses and tachycardia. Patient had full lab assessment including CT of the abdomen and pelvis as well as a 2 view chest x-ray due to ongoing respiratory symptoms. Patient's chest x-ray shows a lingular pneumonia. Antibiotics were initiated and patient has not had any vomiting during her ED course. Patient's CT the abdomen and pelvis was unremarkable. Stool cultures were ordered but no stool was collected during her ED visit. Due to her ongoing nausea and vomiting and difficulty tolerating by mouth we will admit her for ongoing antibiotics for the pneumonia and reassessment and management. Case was discussed with the hospitalist who accepts the patient for admission. Patient's lactate is within normal limits her tachycardia improved with fluids and she has stable vital signs at the time of admission.
[2017-09-06] MEDS ORDERED: 0.9 % Sodium Chloride 1,000 ML IVC ONE (08:42)
[2017-09-06] MEDS ORDERED: cefTRIAXone 1,000 MG in Water for inj. (sterile) 10 ML IVP ONE (09:21)
[2017-09-06 09:31] LABS: Magnesium 1.9 mg/dL (1.6-2.6)
--- NOTE | 2017-09-06 11:25 | Internal Med History&Physical ---
Date of Encounter: 09/06/17 Time of Encounter: 11:23 Assessment and Plan (1) Nausea & vomiting Current visit: Yes Status: Acute concern for gastroenteritis given nausea, vomitting and diarrhea Qualifiers: Vomiting type: bilious vomiting Qualified Code(s): R11.14 - Bilious vomiting (2) Diarrhea Current visit: Yes Status: Acute will check c dific has recent antibiotics Qualifiers: Diarrhea type: unspecified type Qualified Code(s): R19.7 - Diarrhea, unspecified (3) Generalized weakness Current visit: Yes Status: Acute likely due to dehydration (4) Pneumonia Current visit: Yes Status: Acute will start on rocephin and zithromax for cap Qualifiers: Pneumonia type: due to unspecified organism Laterality: left Lung location: unspecified part of lung Qualified Code(s): J18.9 - Pneumonia, unspecified organism (5) Lumbar stenosis Current visit: No Status: Chronic HAD LUMBER FUSION Qualifiers: Neurogenic claudication status: unspecified Qualified Code(s): M48.061 - Spinal stenosis, lumbar region without neurogenic claudication (6) Leukocytosis Current visit: Yes Status: Acute DUE TO ACUTE INFECTION Qualifiers: Leukocytosis type: bandemia Qualified Code(s): D72.825 - Bandemia Internal Medicine - H&P: HPI Chief complaint: nausea,vomitting and diarrhea Admitted From: Emergency Dept Plans for Post Hospital Care: Home History of present illness: Ms. Clemons is a 67 year old female Patient with history of obesity, arthritis, GERD, recent back surgery lumbar fusion. Patient presented emergency room with 3 days of large nausea vomiting diarrhea and some cough. No fever or chills. Emergency room she was tachycardia heart rate 120 given some IV hydration and heart rate came down to 90s. Also has some mild chest pain. Emergency room evaluation. Leukocytosis wbc 14k chest x-ray suggestive of lingula pneumonia been admitted because of diarrhea and nausea vomiting and pneumonia. Past Med Surg Social Fam HX - Past Medical History Medical history: arthritis, GERD, other Psychiatric history: no psych history - Past Surgical History Surgical History: orthopedic, other - Social History Smoking Status: Never smoker Smokeless Tobacco Status: No Alcohol use: none Drug use: none Internal Medicine - H&P: Meds Calcium Carbonate/Vitamin D3 [Calcium 500 + Vit D Caplet] 1 tab PO BID 05/20/17 [History] Famotidine [Pepcid] 40 mg PO DAILY PRN 05/20/17 [History] Gabapentin [Neurontin] 300 mg PO TID 05/20/17 [History] Magnesium Oxide [Magnesium] 500 mg PO DAILY 05/20/17 [History] Meloxicam 15 mg PO DAILY 05/20/17 [History] Albuterol Sulfate [Albuterol Inhaler] 2 puff IH QID #1 inhaler 08/30/17 [Rx] Oxycodone HCl 10 mg PO BID PRN 09/06/17 [History] 3 Allergy/AdvReac Type Severity Reaction Status Date / Time Amoxicillin AdvReac Nausea Verified 09/06/17 06:51 codeine AdvReac Nausea Verified 09/06/17 06:51 hydrocodone AdvReac Nausea Verified 09/06/17 06:51 topiramate [From Topamax] AdvReac Nausea Verified 09/06/17 06:51 All Systems PM: A 10-system review of systems was performed and is negative for pertinent findings except as documented above in the HPI. - Constitutional Constitutional: no chills, no fever(s), no night sweats - EENT Eyes: no change in vision, no discharge, no pain, no photophobia Ears: no ear discharge, no ear pain, no tinnitus Nose, mouth and throat: no dysphagia, no nasal discharge, no neck pain, no sore throat - Cardiovascular Cardiovascular ROS IM: no chest pain, no diaphoresis, no dyspnea, no lightheadedness, no palpitations, no syncope - Respiratory Respiratory: no cough, no dyspnea, no wheezing, no excessive phlegm production - Gastrointestinal Gastrointestinal: abdominal pain, diarrhea, nausea, vomiting - Genitourinary Genitourinary: no change in urinary stream, no dysuria, no flank pain, no hematuria - Musculoskeletal Musculoskeletal ROS IM: no numbness, no tingling - Integumentary Integumentary IM: no rash, no unusual bruising - Neurological Neurological ROS: no confusion, no convulsions, no focal weakness, no numbness, no tingling, no tremor(s) - Constitutional Vitals: Temp Pulse Resp BP Pulse Ox 98.1 F 83 16 143/87 97 09/06/17 11:08 09/06/17 11:08 09/06/17 11:08 09/06/17 11:08 09/06/17 11:08 - Eye Eye exam: Present: PERRL, conjuntiva pink, sclera anicteric Pupils: Present: PERRL - Neck Neck exam general surgery: Present: supple, trachea midline. Absent: lymphadenopathy - Respiratory Respiratory exam: Present: CTAB. Absent: accessory muscle use, rales, rhonchi, wheezes - Cardiovascular Cardiovascular exam: Present: RRR, +S1, +S2. Absent: diastolic murmur, gallop, rubs, systolic murmur - GI/Abdominal GI/Abdominal exam: Present: soft, tenderness - Extremities Exam Extremities exam: Present: warm, radial pulses palpable and symmetrical. Absent : calf tenderness, cyanotic, pedal edema - Neurological Exam Neurological exam: Present: CN II-XII intact, oriented X3, no focal deficits. Absent: pronater drift, facial droop, speech deficit Internal Med - H&P Results - Labs CBC & Chem 7: 09/06/17 07:06 09/06/17 07:06
[2017-09-06] MEDS ORDERED: *HR* Morphine 2 MG/ML SYRINGE IVP PRN (11:42)
[2017-09-06] MEDS ORDERED: Naloxone 0.4 MG/ML INJ IVP PRN (11:42)
[2017-09-06] MEDS ORDERED: Ondansetron 4 MG/2 ML VIAL IVP PRN (11:42)
[2017-09-06] MEDS ORDERED: Famotidine 20 MG TABLET PO PRN (11:44)
[2017-09-06] MEDS ORDERED: *HR* OxyCODONE Immed Rel 5 MG TABLET PO PRN (11:44)
[2017-09-06] MEDS: 0.9 % Sodium Chloride 1,000 ML IVC SCH (13:04)
[2017-09-06] MEDS: Azithromycin 500 MG in D5% in Water 250 ML IVPB SCH (13:04)
[2017-09-06] MEDS: Gabapentin 300 MG CAPSULE PO SCH ×2 (13:33→20:51)
[2017-09-07 01:22] LABS: Hematocrit 38.3 % (35.3-44.9); Mean Corpuscular HGB Conc 32.6 g/dL (31.6-35.5); Mean Corpuscular Hemoglobin 30.6 pg (28.0-33.3); Mean Corpuscular Volume 93.9 fL (83.0-100.0); Mean Platelet Volume 9.9 fL (9.4-12.4); Platelet Count 284 K/mcL (140-400); Red Blood Count 4.08 M/mcL (3.82-4.97); Red Cell Distribution Width 13.6 % (11.5-14.5)
[2017-09-07 01:26] LABS: Hemoglobin 12.5 g/dL (11.5-15.4)
[2017-09-07 01:40] LABS: Alanine Aminotransferase 20 Units/L (0-55); Albumin 2.9 g/dL (3.5-5.0); Albumin/Globulin Ratio 0.8 (1.1-2.2); Alkaline Phosphatase 113 Units/L (38-126); Aspartate Amino Transferase 21 Units/L (5-34); BUN/Creatinine Ratio 10 (6-26); Bilirubin,Total 0.3 mg/dL (0.2-1.2); Blood Urea Nitrogen 7 mg/dL (7-20); Calcium 8.8 mg/dL (8.6-10.8); Carbon Dioxide 28 mEq/L (19-29); Chloride 106 mEq/L (98-109); Chol/HDL Ratio 3.9 (0-4.9); Cholesterol 154 mg/dL (< 200); Globulin 3.5 g/dL (2.4-3.5); Glucose 109 mg/dL (70-99); HDL Cholesterol 40 mg/dL (40-59); LDL Cholesterol,Calculated 91 mg/dL (0-99); Magnesium 2.1 mg/dL (1.6-2.6); Osmolality,Calculated 291 (280-300); Potassium 3.3 mEq/L (3.5-4.5); Sodium 141 mEq/L (136-145); Total Protein 6.4 g/dL (6.0-8.3); Triglycerides 114 mg/dL (< 150); eGFR For African Americans > 60 (> 60); eGFR For Non-African Americans > 60 (> 60)
[2017-09-07] MEDS: 0.9 % Sodium Chloride 1,000 ML IVC SCH (04:50)
[2017-09-07] MEDS: cefTRIAXone 1,000 MG in Water for inj. (sterile) 10 ML IVP SCH (08:13)
[2017-09-07] MEDS: Cholecalciferol (D-3) 1,000 UNIT TABLET PO SCH (08:13)
[2017-09-07] MEDS: Gabapentin 300 MG CAPSULE PO SCH ×3 (08:13→20:45)
[2017-09-07] MEDS: Azithromycin 500 MG in D5% in Water 250 ML IVPB SCH (10:58)
[2017-09-07 12:29] LABS: Adenovirus Not Detected (Not Detect); Bordetella Pertussis Not Detected (Not Detect); Chlamydophila pneumoniae Not Detected (Not Detect); Coronavirus 229E Not Detected (Not Detect); Coronavirus HKU1 Not Detected (Not Detect); Coronavirus NL63 Not Detected (Not Detect); Coronavirus OC43 Not Detected (Not Detect); Human Metapneumovirus Not Detected (Not Detect); Human Rhinovirus/Enterovirus Not Detected (Not Detect); Influenza A Subtype 2009 H1 Not Detected (Not Detect); Influenza A Untypeable Not Detected (Not Detect); Influenza B Not Detected (Not Detect); Mycoplasma pneumoniae Not Detected (Not Detect); Parainfluenza Virus 1 Not Detected (Not Detect); Parainfluenza Virus 2 Not Detected (Not Detect); Parainfluenza Virus 3 Not Detected (Not Detect); Parainfluenza Virus 4 Not Detected (Not Detect); Respiratory Syncytial Virus Not Detected (Not Detect)
--- NOTE | 2017-09-07 14:49 | Internal Med Progress Note ---
Date of Encounter: 09/07/17 Time of Encounter: 14:46 - Assessment and plan (1) Pneumonia Current Visit: Yes Status: Acute Assessment and plan: Presented with persistent shortness of breath, general weakness and malaise. CXR with lingular pneumonia. Recently treated with azithromycin for URI therefore she is considered to failed outpatient therapy. Continue IV azithromycin, ceftriaxone. Jonesne noted on 09/07 exam, add steroid burst. Duo nebs. Respiratory PCR, urinary antigens and sputum culture pending. Qualifiers: Pneumonia type: due to unspecified organism Laterality: left Lung location: unspecified part of lung Qualified Code(s): J18.9 - Pneumonia, unspecified organism (2) Nausea & vomiting Current Visit: Yes Status: Acute Assessment and plan: With associated diarrhea for 3 days prior to presentation. C. difficile negative. Abdomen/pelvis CT unremarkable. Possible gastroenteritis although could be secondary to recent ATB use. No nausea or vomiting on 09/07 exam. Number loose stools decreasing with PRN Imodium Qualifiers: Vomiting type: bilious vomiting Qualified Code(s): R11.14 - Bilious vomiting (3) Hypokalemia Current Visit: Yes Status: Acute Assessment and plan: K 3.3; likely secondary to diarrhea. Potassium replaced. Monitor repeat BMP. (4) DVT prophylaxis Current Visit: Yes Status: Acute Assessment and plan: lovenox - Subjective Interval history: Seen and examined at bedside. Patient is new to me, information obtained from chart review and patient report. Sitting up in chair at bedside. Still with shortness of breath and wheezing but overall improved. Still having loose stool. No chest pain. - Constitutional Vitals: Temp Pulse Resp BP Pulse Ox 98.1 F 64 17 118/74 95 09/07/17 10:47 09/07/17 10:47 09/07/17 10:47 09/07/17 10:47 09/07/17 10:47 General appearance: Present: mild distress, A&O X 3 - Head Head exam: Present: atraumatic, normocephalic - Eye Eye exam: Present: PERRL, conjuntiva pink, sclera anicteric Pupils: Present: PERRL - Neck Neck exam general surgery: Present: supple, trachea midline. Absent: lymphadenopathy - Respiratory Respiratory exam: Present: CTAB, wheezes. Absent: accessory muscle use, rales, rhonchi - Cardiovascular Cardiovascular exam: Present: RRR, +S1, +S2. Absent: diastolic murmur, gallop, rubs, systolic murmur - GI/Abdominal GI/Abdominal exam: Present: normal bowel sounds, soft, no peritoneal signs. Absent: distended, tenderness - Extremities Exam Extremities exam: Present: warm, radial pulses palpable and symmetrical. Absent : calf tenderness, cyanotic, pedal edema - Neurological Exam Neurological exam: Present: CN II-XII intact, oriented X3, no focal deficits. Absent: pronater drift, facial droop, speech deficit - Skin Skin exam: Present: dry, intact Internal Medicine: Result - Labs CBC & Chem 7: 09/07/17 01:13 09/07/17 01:13 Labs: Short CBC 09/07/17 Range/Units 01:13 WBC 9.0 (4.3-11.1) K/mcL Hgb 12.5 D (11.5-15.4) g/dL Hct 38.3 (35.3-44.9) % Plt Count 284 (140-400) K/mcL BMP 09/07/17 01:13 Sodium 141 Potassium 3.3 L Chloride 106 Carbon Dioxide 28 BUN 7 Creatinine 0.69 Glucose 109 H Calcium 8.8 Cardiac Enzymes 09/06/17 09/07/17 Range/Units 18:10 01:13 Troponin I 0.01 0.00 (0-0.03) ng/mL Liver Function 09/07/17 Range/Units 01:13 Total Bilirubin 0.3 (0.2-1.2) mg/dL AST 21 (5-34) Units/L ALT 20 (0-55) Units/L Alkaline Phosphatase 113 (38-126) Units/L Albumin 2.9 L (3.5-5.0) g/dL Consult Discharge Plan - Plan Referrals: Gregor España MD [Primary Care Provider] -
[2017-09-07] MEDS: predniSONE 20 MG TABLET PO SCH (15:02)
[2017-09-08] MEDS ORDERED: Fluconazole 100 MG TABLET PO ONE (05:14)
[2017-09-08] MEDS ORDERED: *HR* Enoxaparin 40 MG/0.4 ML SYRINGE SQ SCH (06:00)
[2017-09-08 06:20] LABS: BUN/Creatinine Ratio 14 (6-26); Blood Urea Nitrogen 8 mg/dL (7-20); Calcium 9.1 mg/dL (8.6-10.8); Carbon Dioxide 26 mEq/L (19-29); Chloride 106 mEq/L (98-109); Glucose 125 mg/dL (70-99); Osmolality,Calculated 288 (280-300); Potassium 4.1 mEq/L (3.5-4.5); Sodium 139 mEq/L (136-145); eGFR For African Americans > 60 (> 60); eGFR For Non-African Americans > 60 (> 60)
[2017-09-08 07:21] VITALS: BP 141/80
[2017-09-08] MEDS: predniSONE 20 MG TABLET PO SCH (09:12)
[2017-09-08] MEDS: Gabapentin 300 MG CAPSULE PO SCH (09:12)
[2017-09-08] MEDS: cefTRIAXone 1,000 MG in Water for inj. (sterile) 10 ML IVP SCH (09:13)
[2017-09-08] MEDS: Cholecalciferol (D-3) 1,000 UNIT TABLET PO SCH (09:15)
--- NOTE | 2017-09-08 09:51 | Discharge Summary ---
Date of Encounter: 09/08/17 Time of Encounter: 09:39 - Discharge Diagnosis (1) Pneumonia Priority: Primary Status: Acute Comments: presented with persistent shortness of breath, general weakness and malaise. CXR with lingular pneumonia. Chest CTA negative for pulmonary embolism. Recently treated with azithromycin for URI therefore she is considered to failed outpatient therapy. Respiratory PCR, urinary antigens negative. Symptoms significantly improved with IV azithromycin, ceftriaxone and steroids. Change ATB to Levaquin at discharge. Continue steroid burst. Recommend follow-up with PCP within 1-2 weeks. Qualifiers: Pneumonia type: due to unspecified organism Laterality: left Lung location: unspecified part of lung Qualified Code(s): J18.9 - Pneumonia, unspecified organism (2) Nausea & vomiting Priority: Primary Status: Resolved Comments: with associated diarrhea for 3 days prior to presentation. C. difficile negative. Abdomen/pelvis CT unremarkable. Patient reports normal colonoscopy within the past year. Possible gastroenteritis or known irritable bowel disease. Diarrhea improved with PRN loperamide. Nausea, vomiting resolved. Tolerating regular diet at time of discharge. May need outpatient GI referral if diarrhea persists. Continue PRN loperamide for one week only. Advised to follow-up with PCP within 1-2 weeks or sooner if diarrhea persists. Patient says she is had a recent colonoscopy which was negative. Advised her to continue loperamide PRN for a week only and follow up with her PCP if diarrhea process. Qualifiers: Vomiting type: bilious vomiting Qualified Code(s): R11.14 - Bilious vomiting (3) Hypokalemia Priority: Primary Status: Resolved Comments: K 3.3; likely secondary to diarrhea. Potassium normalized with replacement. Recommend repeat BMP with PCP within one week - Discharge Medications Prescriptions: levoFLOXacin [Levaquin] 750 mg PO DAILY #7 tablet Loperamide [Imodium] 4 mg PO Q2H PRN #30 capsule PRN Reason: Diarrhea PredniSONE [Deltasone] 20 mg PO DAILY #6 tablet Home Medications: Calcium Carbonate/Vitamin D3 [Calcium 500 + Vit D Caplet] 1 tab PO BID 05/20/17 [History] Famotidine [Pepcid] 40 mg PO DAILY PRN 05/20/17 [History] Gabapentin [Neurontin] 300 mg PO TID 05/20/17 [History] Magnesium Oxide [Magnesium] 500 mg PO DAILY 05/20/17 [History] Meloxicam 15 mg PO DAILY 05/20/17 [History] Albuterol Sulfate [Albuterol Inhaler] 2 puff IH QID #1 inhaler 08/30/17 [Rx] Oxycodone HCl 10 mg PO BID PRN 09/06/17 [History] Loperamide [Imodium] 4 mg PO Q2H PRN #30 capsule 09/08/17 [Rx] PredniSONE [Deltasone] 20 mg PO DAILY #6 tablet 09/08/17 [Rx] levoFLOXacin [Levaquin] 750 mg PO DAILY #7 tablet 09/08/17 [Rx] Allergies/Adverse Reactions: 3 Allergy/AdvReac Type Severity Reaction Status Date / Time Amoxicillin AdvReac Nausea Verified 09/06/17 06:51 codeine AdvReac Nausea Verified 09/06/17 06:51 hydrocodone AdvReac Nausea Verified 09/06/17 06:51 topiramate [From Topamax] AdvReac Nausea Verified 09/06/17 06:51 Date of admission: 09/06/17 09:56 Primary care physician: Gregor España MD Discharging clinician: Keren Lopez Anticipated date of discharge: 09/08/17 - Patient Status Disposition: Home, Self-Care Condition: Good Functional capacity at discharge: independent ambulation Overall status at discharge: patient is not back to baseline - Discharge Instructions Instructions: Community-acquired Pneumonia (DC), Levofloxacin (By mouth), Prednisone (By mouth) Follow Up With: Gregor España MD [Primary Care Provider] - Additional Instructions: Please follow-up with your PCP within 1-2 weeks. You may need to be seen by gastroenterology if diarrhea persists. - Diet and Activity Activity: increase activity as tolerated, resume usual activities as tolerated Interval History: Seen and examined at bedside. Still with cough and SOB but significantly improved. Says she feels better and she would like to go home today. Number of stools has significantly decreased as well. She has history of irritable bowel disease and she thinks that for the diarrhea was coming from. She is tolerating regular diet with no nausea or vomiting. No chest pain. Hospital course: See assessment and plan for hospital course - Time Spent with Patient Total time spent providing and/or coordinating discharge services: - Constitutional Vitals: Temp Pulse Resp BP Pulse Ox 97.1 F L 72 19 141/80 96 09/08/17 07:18 09/08/17 07:18 09/08/17 07:18 09/08/17 07:18 09/08/17 07:18 General appearance: Present: A&O X 3, morbidly obese - Head Head exam: Present: atraumatic, normocephalic - Eye Eye exam: Present: PERRL, conjuntiva pink, sclera anicteric Pupils: Present: PERRL - Neck Neck exam general surgery: Present: supple, trachea midline. Absent: lymphadenopathy - Respiratory Respiratory exam: Present: CTAB. Absent: accessory muscle use, rales, rhonchi, wheezes - Cardiovascular Cardiovascular exam: Present: RRR, +S1, +S2. Absent: diastolic murmur, gallop, rubs, systolic murmur - GI/Abdominal GI/Abdominal exam: Present: normal bowel sounds, soft, no peritoneal signs. Absent: distended, tenderness - Extremities Exam Extremities exam: Present: warm, radial pulses palpable and symmetrical. Absent : calf tenderness, cyanotic, pedal edema - Neurological Exam Neurological exam: Present: CN II-XII intact, oriented X3, no focal deficits. Absent: pronater drift, facial droop, speech deficit - Skin Skin exam: Present: dry, intact
--- NOTE | 2017-09-08 17:20 | Electrocardiograph Report ---
[address] [address] Test Date: 2017-09-06 Pat Name: Fiorella Clemons Department: 103 Room: 3B Gender: F [employer]: [facility] : 1950 Requested By: Keren Lopez Order Number: [id number] Reading MD: Bryce Bright Measurements Intervals [place] Rate: 90 P: 19 CO: 138 QRS: -9 QRSD: 90 T: 11 QT: 353 QTc: 400 Interpretive Statements SINUS RHYTHM Electronically Signed On 09-08-2017 17:18:25 EST by Bryce Bright
== END 2017-09-08 11:40 | disposition home or self-care (01) ==
LOC: EMEROO 06:49 → 3BNU 09:56 → INTOOBSV 09:56 → 3BNU 10:48
PROVIDERS: ADMIT Internal Medicine Cardiovascular Disease; ATTEND Registered Nurse

== ENCOUNTER 2019-04-05 10:46 | Observation (INO) ==
[2019-04-05] MEDS ORDERED: Ropivacaine/PF 0.5% 24.62 ML, EPINEPHrine 0.25 MG, Ketorolac 15 MG, Water for inj. (ste... IR ONE (11:00)
[2019-04-05] MEDS ORDERED: CeFAZolin Syr 2,000MG/20 ML 2,000 MG/20 ML SYRINGE IVPB ONE (11:15)
[2019-04-05] MEDS ORDERED: Ringers Solution, Lactated 1,000 ML IVC SCH (11:15)
[2019-04-05] MEDS ORDERED: Acetaminophen IV 1,000 MG/100 ML INFUS..BTL IVPB ONE (11:50)
[2019-04-05] MEDS ORDERED: *HR* Promethazine 25 MG/ML VIAL IVP PRN ×2 (11:51→16:57)
[2019-04-05] MEDS ORDERED: *HR* HYDROmorphone (PF) 1 MG/ML SYRINGE IVP PRN (11:51)
[2019-04-05] MEDS ORDERED: *HR* OxyCODONE Immed Rel 5 MG TABLET PO PRN (11:51)
[2019-04-05] MEDS ORDERED: *HR* FentaNYL (PF) 100 MCG/2 ML VIAL ONE (12:07)
[2019-04-05] MEDS ORDERED: *HR* Midazolam HCl 2 MG/2 ML VIAL ONE (12:07)
[2019-04-05] MEDS ORDERED: *HR* Propofol 200 MG/20 ML VIAL IVP ONE (12:08)
[2019-04-05] MEDS ORDERED: ROPIVACAINE/PF/NS 0.25% 1 EACH SYRINGE INTRAART ONE (12:55)
[2019-04-05] MEDS ORDERED: Ethanol\\Acetic Acid\\Na Ace\\Ben 1,000 ML IRRIG.SOLN IR ONE (12:56)
[2019-04-05] MEDS ORDERED: Propofol 500 MG/50 ML INFUS..BTL ONE (13:31)
[2019-04-05] MEDS ORDERED: Tranexamic Acid 1,000 MG/10 ML VIAL ONE (13:35)
[2019-04-05 15:37] LABS: Hemoglobin 13.7 g/dL (11.5-15.4)
[2019-04-05] MEDS ORDERED: Temazepam 15 MG CAPSULE PO PRN (16:57)
[2019-04-05] MEDS ORDERED: Naloxone 0.4 MG/ML INJ IVP PRN (16:57)
[2019-04-05] MEDS ORDERED: MOM Conc 10 ML UD.LIQ PO PRN (16:57)
[2019-04-05] MEDS ORDERED: Sennosides 8.6 MG TABLET PO PRN (16:57)
[2019-04-05] MEDS ORDERED: Famotidine 20 MG TABLET PO PRN (16:57)
[2019-04-05] MEDS: Gabapentin 300 MG CAPSULE PO SCH ×2 (17:32→20:11)
[2019-04-05] MEDS: Ascorbic Acid 500 MG TABLET PO SCH (17:32)
[2019-04-05] MEDS: Ondansetron 4 MG/2 ML VIAL IVP PRN (17:34)
[2019-04-05] MEDS: HYDROcodone BIT/Homatropine 5 MG TABLET PO PRN ×2 (17:34→23:49)
[2019-04-05] MEDS: *HR* Enoxaparin 30 MG/0.3 ML SYRINGE SQ SCH (17:34)
[2019-04-05] MEDS ORDERED: Anastrozole 1 MG TABLET PO SCH (18:00)
[2019-04-05] MEDS: *HR* OxyCODONE Immed Rel 5 MG TABLET PO PRN (20:23)
[2019-04-05] MEDS: Anastrozole 1 MG TABLET PO SCH (20:49)
[2019-04-06] MEDS ORDERED: Ketorolac 30 MG/ML VIAL IVP PRN (00:49)
[2019-04-06] MEDS ORDERED: Acetaminophen IV 1,000 MG/100 ML INFUS..BTL IVPB PRN (00:50)
[2019-04-06] MEDS: *HR* Enoxaparin 30 MG/0.3 ML SYRINGE SQ SCH ×2 (06:02→16:49)
[2019-04-06 07:25] LABS: Basophils % 0.5 %; Eosinophils # 0.1 K/mcL (0.0-0.6); Eosinophils % 1.6 %; Hematocrit 36.9 % (35.3-44.9); Immature Granulocytes % 0.2 % (0-4); Lymphocytes # 1.6 K/mcL (0.6-4.6); Lymphocytes % 18.8 %; Mean Corpuscular HGB Conc 32.5 g/dL (31.6-35.5); Mean Corpuscular Hemoglobin 30.8 pg (28.0-33.3); Mean Corpuscular Volume 94.6 fL (83.0-100.0); Mean Platelet Volume 10.2 fL (9.4-12.4); Monocytes # 1.1 K/mcL (0.0-1.3); Monocytes % 12.3 %; Neutrophils # 5.8 K/mcL (1.6-8.9); Platelet Count 221 K/mcL (140-400); Red Cell Distribution Width 13.4 % (11.5-14.5); Segmented Neutrophils % 66.6 %; White Blood Count 8.7 K/mcL (4.3-11.1)
[2019-04-06 07:40] LABS: BUN/Creatinine Ratio 17 (6-26); Blood Urea Nitrogen 15 mg/dL (8-23); Calcium 8.5 mg/dL (8.6-10.3); Carbon Dioxide 28 mEq/L (23-29); Chloride 100 mEq/L (98-107); Glucose 109 mg/dL (70-105); Osmolality,Calculated 283 (280-300); Potassium 3.8 mEq/L (3.5-5.1); Sodium 136 mEq/L (136-145); eGFR For African Americans > 60 (> 60); eGFR For Non-African Americans > 60 (> 60)
[2019-04-06] MEDS: Gabapentin 300 MG CAPSULE PO SCH ×3 (08:03→20:11)
[2019-04-06] MEDS: Ascorbic Acid 500 MG TABLET PO SCH ×2 (08:03→16:49)
[2019-04-06] MEDS: Multivit/Ca/Min/Fe/FA 1 TAB TABLET PO SCH (08:03)
[2019-04-06] MEDS: Cholecalciferol (D-3) 1,000 UNIT (25MCG) TABLET PO SCH (08:04)
[2019-04-06] MEDS: HYDROcodone BIT/Homatropine 5 MG TABLET PO PRN ×2 (08:06→12:09)
[2019-04-06] MEDS: Ondansetron 4 MG/2 ML VIAL IVP PRN (11:26)
[2019-04-06] MEDS: Ringers Solution, Lactated 1,000 ML IVC SCH (15:08)
[2019-04-06] MEDS: *HR* OxyCODONE Immed Rel 5 MG TABLET PO PRN (16:48)
[2019-04-06] MEDS: Anastrozole 1 MG TABLET PO SCH (20:11)
[2019-04-07] MEDS: HYDROcodone BIT/Homatropine 5 MG TABLET PO PRN (01:12)
[2019-04-07 02:12] LABS: Basophils # 0.1 K/mcL (0.0-0.2); Basophils % 0.8 %; Eosinophils # 0.4 K/mcL (0.0-0.6); Eosinophils % 4.7 %; Hematocrit 36.1 % (35.3-44.9); Hemoglobin 11.8 g/dL (11.5-15.4); Immature Granulocytes % 0.1 % (0-4); Lymphocytes # 1.7 K/mcL (0.6-4.6); Lymphocytes % 20.5 %; Mean Corpuscular HGB Conc 32.7 g/dL (31.6-35.5); Mean Corpuscular Hemoglobin 31.6 pg (28.0-33.3); Mean Corpuscular Volume 96.5 fL (83.0-100.0); Mean Platelet Volume 10.5 fL (9.4-12.4); Monocytes # 1.4 K/mcL (0.0-1.3); Monocytes % 17.2 %; Neutrophils # 4.7 K/mcL (1.6-8.9); Platelet Count 195 K/mcL (140-400); Red Blood Count 3.74 M/mcL (3.82-4.97); Red Cell Distribution Width 13.3 % (11.5-14.5); Segmented Neutrophils % 56.7 %; White Blood Count 8.3 K/mcL (4.3-11.1)
[2019-04-07 02:31] LABS: BUN/Creatinine Ratio 16 (6-26); Blood Urea Nitrogen 12 mg/dL (8-23); Calcium 8.6 mg/dL (8.6-10.3); Carbon Dioxide 27 mEq/L (23-29); Chloride 104 mEq/L (98-107); Glucose 114 mg/dL (70-105); Osmolality,Calculated 289 (280-300); Potassium 3.6 mEq/L (3.5-5.1); Sodium 139 mEq/L (136-145); eGFR For African Americans > 60 (> 60); eGFR For Non-African Americans > 60 (> 60)
[2019-04-07] MEDS: *HR* OxyCODONE Immed Rel 5 MG TABLET PO PRN ×2 (03:15→10:13)
[2019-04-07] MEDS: *HR* Enoxaparin 30 MG/0.3 ML SYRINGE SQ SCH (05:56)
[2019-04-07] MEDS: Gabapentin 300 MG CAPSULE PO SCH (10:08)
[2019-04-07] MEDS: Ascorbic Acid 500 MG TABLET PO SCH (10:09)
[2019-04-07] MEDS: Cholecalciferol (D-3) 1,000 UNIT (25MCG) TABLET PO SCH (10:09)
[2019-04-07] MEDS: Multivit/Ca/Min/Fe/FA 1 TAB TABLET PO SCH (10:09)
[2019-04-07 15:11] VITALS: BP 104/67
== END 2019-04-07 15:24 | disposition home health service (06) ==
LOC: 3NENU 10:46 → SAMDAY 10:46 → 3NENU 16:29
PROVIDERS: ADMIT Orthopaedic Surgery; ATTEND Orthopaedic Surgery